=== PATIENT | female | born 1995 | race African-American/Black ===

== ENCOUNTER 2018-03-22 17:15 | Emergency (ER) | payer OTHER ==
[~2018-03-22] VITALS: Ht 167.6 cm; Wt 78.0 kg
[~2018-03-22 17:15] MED LIST: NITR100C62 PO
[2018-03-22 17:25] VITALS: BP 140/73
[2018-03-22] MEDS ORDERED: AMOX1TAB61 PO (17:28)
[2018-03-22] MEDS ORDERED: NAPR-683 PO (17:28)
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
== END 2018-03-22 17:43 | disposition home or self-care (01) ==
LOC: ER 17:15
DX: S20.01XA Contusion of right breast, initial encounter (principal); W50.3XXA Accidental bite by another person, initial encounter; Y93.89 Activity, other specified; Y92.89 Other specified places as the place of occurrence of the external cause; Y99.8 Other external cause status
CPT/HCPCS: 99283